=== PATIENT | female | born 1955 | race Caucasian/White ===

== ENCOUNTER → 2016-12-13 | Outpatient (CLI) | payer OTHER ==
--- NOTE | 2016-12-13 17:13 | US ---
Right Breast Ultrasound History: Evaluate asymmetry in the upper-outer posterior right [facility]. Technique: Longitudinal and transverse images were obtained utilizing a 15 MHz transducer. Color Dop pler evaluation was employed for assessment of vascularity. Findings: A palpable asymmetry at the 11 o'clock position of the right breast is identified on physic al examination. Sonographic interrogation demonstrates a solid hypoechoic mass with prominent posteri or acoustic shadowing with ill-defined borders. Accurate size measurement is difficult, but the lesio n measures at least 2.1 x 1.5 cm. The right axilla was scanned with no pathologically enlarged lymph nodes identified. Impression: Palpable solid hypoechoic mass is highly suspicious for breast malignancy. BI-RADS 5. Recommendation: Ultrasound-guided core biopsy. Findings and biopsy recommendation were reviewed with the patient in detail. The Imaging Department w ill contact the patient to schedule the biopsy. Additionally, Dr. Chris Huang's office will be contac mary to obtain an order for the procedure. I have discussed the findings and biopsy recommendation wit h Dr. Huang. [facility] will send a result letter to the patient.
== END ==
LOC: FIMAGING 15:55
PROVIDERS: ATTEND Family Medicine
DX: N63 Unspecified lump in breast (principal)

== ENCOUNTER → 2017-02-15 | Outpatient (CLI) | payer OTHER | LOC: FIMAGING 12:09 | PROVIDERS: ATTEND Family Medicine | DX: Z12.39 Encounter for other screening for malignant neoplasm of breast (principal); N63 Unspecified lump in breast ==

== ENCOUNTER → 2017-05-17 | Outpatient (CLI) | payer OTHER | LOC: FIMAGING 09:51 | PROVIDERS: ATTEND Surgery | DX: C50.411 Malignant neoplasm of upper-outer quadrant of right female breast (principal); R92.8 Other abnormal and inconclusive findings on diagnostic imaging of breast ==